=== PATIENT | female | born 1995 | race African-American/Black ===

== ENCOUNTER 2017-06-01 20:01 | Inpatient (IN) ==
[2017-06-01] MEDS ORDERED: ONDANSETRON 4 MG/2 ML VIAL IV PRN (20:32)
[2017-06-01 21:05] LABS: Basophils % 0.1 % (0.0-0.8); Eosinophils % 0.6 % (0.00-10.9); Hematocrit 32.4 VOL% (35.7-47.0); Hemoglobin 11.4 GM/DL (12.0-16.0); Immature Granulocytes % 0.4 %; Immature Granulocytes Absolute 0.03 #; Lymphocytes # 1.9 10*3/uL (1.4-4.0); Lymphocytes % 27.3 % (21.3-54.2); Mean Corpuscular HGB Conc 35.2 GM/DL (32-36); Mean Corpuscular Hemoglobin 32 PG (27-34); Mean Corpuscular Volume 91.3 FL (87-102); Monocytes # 0.6 10*3/uL (0.11-0.8); Neutrophils # 4.4 10*3/uL (1.4-7.4); Neutrophils % 63.6 % (38.7-73.9); Platelet Count 149 T/CUMM (130-400); Red Blood Count 3.55 MC/CUMM (3.8-5.5); Red Cell Distribution Width 13.3 % (9.3-17.3); White Blood Count 6.9 T/CUMM (4-12)
[2017-06-01] MEDS: LACTATED RINGERS 1,000 ML IV SCH (21:30)
[2017-06-01 21:35] LABS: PT Patient Result 10.1 SECS; Partial Thromboplastin Time 29.6 SECS (0-40)
[2017-06-01 21:41] LABS: Alanine Aminotransferase 16 U/L (13-56); Albumin 2.8 G/DL (3.4-5.0); Alkaline Phosphatase 172 U/L (45-117); Aspartate Amino Transferase 16 U/L (0-37); Bilirubin,Total < 0.39 MG/DL (0.2-1.0); Blood Urea Nitrogen 8 MG/DL (7-18); Calcium 8.4 MG/DL (8.5-10.1); Glucose 82 MG/DL (74-106); Osmolality,Calculated 279.1 MOS/KG (273-304); Potassium 3.6 MMOL/L (3.5-5.1); Sodium 142 MMOL/L (136-145); Total Protein 6.6 G/DL (6.4-8.3); Uric Acid 4.8 MG/DL (2.6-6.0)
[2017-06-02] MEDS: BUTORPHANOL 1 MG/ML VIAL IV PRN ×2 (01:37→07:25)
[2017-06-02] MEDS: LACTATED RINGERS 1,000 ML IV SCH ×3 (01:37→21:54)
[2017-06-02] MEDS ORDERED: FAMOTIDINE 20 MG/2 ML VIAL IV ONE ×2 (05:22→07:30)
[2017-06-02] MEDS ORDERED: LACTATED RINGERS 250 ML IV PRN (05:22)
[2017-06-02] MEDS ORDERED: ePHEDrine 50 MG/ML AMP IV PRN (05:22)
[2017-06-02] MEDS ORDERED: CITRIC ACID/SODIUM CITRATE 30 ML UDCUP PO ONE (05:22)
[2017-06-02] MEDS ORDERED: PROMETHAZINE 25 MG/1 ML VIAL IM ONE (05:22)
[2017-06-02] MEDS ORDERED: hydrOXYzine HCL 25 MG/1 ML VIAL IM PRN (05:22)
[2017-06-02] MEDS ORDERED: diphenhydrAMINE 50 MG/1 ML VIAL IV PRN ×2 (05:22)
[2017-06-02] MEDS ORDERED: fentaNYL 2 MCG/ROPIV 0.2% EPID 150 ML EPIDURAL SCH (05:22)
[2017-06-02] MEDS ORDERED: LACTATED RINGERS 1,000 ML IV SCH (05:30)
--- NOTE | 2017-06-02 05:56 | OB/GYN History & Physical ---
History of Present Illness Chief complaint: at 39 weeks PIH admitted for Cytotec induction History of present illness: Ms. Soto is a 21 year old female 1 para 0 at 39 weeks with elevated blood pressures, was seen last week with elevated blood pressures but they did normalize left lateral decubitus. There now staying elevated. Ultrasound performed which showed estimated weight 7 lbs. 4 oz. vertex presentation with JOSELINE of 11.4. She has adequate clinical pelvimetry. Options were discussed with patient and she is consequently scheduled for Cytotec induction. 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 - Constitutional General appearance: normal weight, no acute distress - Head Head exam: Present: normal inspection, normocephalic, atraumatic - Neck Neck exam: Present: normal inspection - Respiratory Respiratory exam: Present: clear to auscultation bilaterally - Breast Breasts: as per HPI Menstruation: as per HPI - Cardiovascular Cardiovascular exam: Present: regular rate and rhythm - GI/Abdominal GI/Abdominal exam: Present: normal bowel sounds - Extremities Exam Extremities exam: Present: normal inspection, normal capillary refill - Back Exam Back exam: Present: normal inspection - Psychiatric Psychiatric exam: Present: normal affect - Skin Skin exam: Present: normal color, warm Assessment and Plan (1) with 39 completed weeks gestation Status: Acute Current Visit: Yes (2) PIH ( induced hypertension) Status: Acute Current Visit: Yes (3) Elective induction of labor planned Status: Acute Current Visit: Yes Results - Labs CBC & BMP: 06/01/17 20:47 06/01/17 20:47
[2017-06-02] MEDS ORDERED: ONDANSETRON 4 MG/2 ML VIAL ONE (07:55)
[2017-06-02] MEDS ORDERED: OXYTOCIN/LR 20 UNIT/1,000 ML BAG IV ONE ×2 (10:13→11:08)
[2017-06-02] MEDS ORDERED: ONDANSETRON 4 MG/2 ML VIAL IV PRN (11:08)
[2017-06-02] MEDS ORDERED: ACETAMINOPHEN 325 MG TABLET PO PRN (11:08)
[2017-06-02] MEDS ORDERED: BISACODYL 10 MG SUPP RECTAL PRN (11:08)
[2017-06-02] MEDS ORDERED: MEASLES/MUMPS/RUBELLA VACCINE 0.5 ML VIAL SUBCUT ONE (11:08)
[2017-06-02] MEDS ORDERED: oxyCODONE/ACETAMINOPHEN 5-325 MG TABLET PO PRN (11:08)
[2017-06-02] MEDS ORDERED: LANOLIN 50% CREAM 0.3 OZ TUBE TOP PRN (11:08)
[2017-06-02] MEDS ORDERED: DIPH/TET/ACEL PERT BOOSTER VACCINE 0.5 ML VIAL IM ONE (11:08)
[2017-06-02] MEDS ORDERED: BENZOCAINE 20%/MENTHOL 0.5% SPRAY 56 GM CAN TOP PRN (11:08)
[2017-06-02] MEDS ORDERED: RHO(D) IMMUNE GLOBULIN 300 MCG SYRINGE IM ONE (11:08)
[2017-06-02] MEDS ORDERED: WITCH HAZEL PADS 100/JAR TOP PRN (11:08)
[2017-06-02] MEDS ORDERED: HYDROCORTISONE 2.5% RECTAL CREAM 30 GM TUBE TOP PRN (11:08)
[2017-06-02] MEDS ORDERED: TISSUE ADHESIVE 1 EACH APPLICATOR TOP ONE (11:08)
--- NOTE | 2017-06-02 11:08 | Operative Note ---
Date of procedure: 06/02/17 Pre-op diagnosis: 39 weeks PIH failed Cytotec persistent stress Post-op diagnosis: same Procedure: This is Dr. Miller dictating operative note: Preoperative diagnosis intrauterine intrauterine at [39] weeks 2. PIH 3. Failed Cytotec induction 4. Persistent stress remote from delivery Postoperative diagnosis same Procedure primary low transverse section Surgeon Dr. Miller Anesthesia epidural Findings liveborn [male] infant 6 pounds 2 ounces Apgars 9 and 9 Complications none Estimated blood loss [400] mL Disposition patient to recovery room in [stable] condition. Infant to nursery in [stable] condition Operative description: After the risks benefits and alternatives were explained to the patient in detail and informed consent was obtained, the patient was taken to the operating room where she was placed in the supine position. After achieving appropriate anesthesia the abdomen was prepped and draped in the usual sterile fashion. A Orellana catheter was placed without difficulty. After the appropriate time out and after adequate anesthesia was ascertained a Pfannenstiel skin incision was made and carried down through the subcutaneous tissue down to the fascia. The fascia was nicked in the midportion and undermined and incised both laterally and cephalad using sharp dissection with the curved Joseph scissors. 2 Helena clamps were used to elevate the rectus fascia superiorly which was bluntly and sharply dissected away from the rectus muscle below. This was repeated inferiorly. The rectus muscles were then bluntly in the midline the peritoneum identified grasped with 2 curved hemostats and entered sharply using the curved Metzenbaum scissors. A bladder blade was then placed in the pelvis and a bladder flap was created off the lower uterine segment using sharp dissection with the Metzenbaum scissors. The bladder blade was then repositioned. A transverse incision was made across the lower uterine segment down to the amnion. Entry into the amnion revealed [ clear] amniotic fluid. The uterine incision was then extended laterally using bilateral finger fractionation. Upon palpation the presenting part was [vertex ] which was gently elevated out of the pelvis and delivered onto the abdominal wall using appropriate fundal pressure. The 's nose and oropharynx were bulb and DeLee suctioned and the infant had spontaneous cry delivery. The cord was doubly clamped and cut and the was handed over to the team for care. Cord blood was obtained. The placenta was delivered manually and IV Pitocin antibiotics and Zofran were begun. The uterus was then exteriorized and placed in a wet laparotomy sponge. 2 fingers wrapped around a wet laparotomy sponge were used to remove all residual membranes from the uterine cavity. The uterus was then closed in 2 layers. The first layer of myometrium was closed with #1 Monocryl suture in an inner locking fashion beginning at both angles and overlapping slightly in the midline. The second layer of myometrium was closed with #1 Monocryl suture in a running imbricating stitch beginning at the right angle and continuing the length of the uterine incision. Hemostasis was noted to be excellent. The posterior cul-de-sac was then irrigated and cleansed with a wet laparotomy sponge and the uterus was placed back in the abdominal cavity. Both pericolic gutters were then irrigated and cleansed with a wet lap sponge. The uterine incision was then re-irrigated and again noted to be hemostatic. All counts were noted to be correct. The subcutaneous tissue was then closed using 3-0 Vicryl suture in a running fashion. The subfascial area was made hemostatic using electrocautery and closed with #1 PDS suture in a running fashion beginning at both angles and overlapping slightly in the midline. The subcutaneous tissue was irrigated and made hemostatic using electrocautery and closed with 2-0 Vicryl suture in a running fashion and the skin was closed with wide skin ashley and a sterile pressure bandage was applied to the wound. All sponge needle and instrument counts were correct -3 at the end of the procedure. The patient's urine was [ clear] both at the beginning in the end of the procedure. The patient was taken to the recovery room in stable condition Anesthesia: epidural Surgeon / Physician: Terrell Miller Estimated blood loss: other (400) Specimens: none sent Condition: stable Disposition: floor Results - Labs CBC & BMP: 06/01/17 20:47 06/01/17 20:47
[2017-06-02 11:39] LABS: Cord Arterial Blood HCO3 23.4 MMOL/L
[2017-06-02] MEDS ORDERED: KETAMINE 500 MG/10 ML VIAL ONE (11:39)
[2017-06-02] MEDS ORDERED: MIDAZOLAM 2 MG/2 ML VIAL ONE (11:39)
[2017-06-02 11:43] LABS: Cord Venous Blood HCO3 22.4 MMOL/L; Cord Venous Blood PCO2 59.3 MMHG; Cord Venous Blood PO2 12.7 MMHG
--- NOTE | 2017-06-02 11:45 | Anesthesia Post-Op ---
Anesthesia Post OP - Post Ansesthetic Evaluation Patient seen in post op: Yes Resp: within normal limits CV: within normal limits Mental: within normal limits Temp: within normal limits [id number]: within normal limits Nausea and Vomiting: within normal limits Pain: within normal limits
[2017-06-02] MEDS ORDERED: HYDROmorphone 2 MG/1 ML VIAL IV ONE (13:23)
[2017-06-02] MEDS ORDERED: NALOXONE 0.4 MG/ML VIAL IV PRN (14:02)
[2017-06-02] MEDS ORDERED: HYDROmorphone PCA 30 MG/30 ML SYRINGE IV SCH (14:30)
[2017-06-02] MEDS ORDERED: MORPHINE 2 MG/1 ML SYRINGE IV PRN (16:00)
[2017-06-02] MEDS ORDERED: LABETALOL 100 MG TABLET ONE (16:35)
[2017-06-02] MEDS: LABETALOL 100 MG TABLET PO SCH (16:39)
[2017-06-02] MEDS ORDERED: hydrALAZINE 20 MG/1 ML VIAL IV PRN (18:05)
[2017-06-03] MEDS: LACTATED RINGERS 1,000 ML IV SCH (06:20)
[2017-06-03] MEDS: LABETALOL 100 MG TABLET PO SCH ×3 (06:21→20:51)
[2017-06-03] MEDS: DOCUSATE SODIUM 100 MG CAPSULE PO SCH ×3 (06:21→20:51)
--- NOTE | 2017-06-03 06:27 | OB/GYN Progress Note ---
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 She is tolerating her diet. She is alert and oriented -3 Cardiovascular regular rate and rhythm Lungs clear to auscultation Abdomen soft with appropriate tenderness and bowel sounds are present and her incision is dry no bleeding Is good refill HEENT shows pink conjunctiva assessment 1 day of surgery doing well Plan continue present management with expected DC in a.m. Exam BUSINESS RELATIONS MANAGER - Constitutional Vitals: Vital Signs Temp Pulse Pulse Resp BP BP Pulse Ox 06/03/17 04:00 98.1 F 98 H 98 H 18 137/77 137/77 97 06/02/17 23:52 98.6 F 88 88 18 123/73 123/73 98 06/02/17 20:45 97 H 18 129/75 98 06/02/17 20:00 99.0 F 105 H 20 145/85 06/02/17 19:45 105 H 20 145/85 98 06/02/17 18:45 146/80 06/02/17 18:22 153/86 06/02/17 18:18 140/95 06/02/17 18:16 153/104 06/02/17 18:15 152/106 06/02/17 18:00 163/106 06/02/17 17:15 75 18 155/102 06/02/17 16:15 98.8 F 89 18 152/102 06/02/17 15:15 87 18 149/105 06/02/17 14:45 85 18 158/102 06/02/17 14:15 99 F 95 H 18 154/94 06/02/17 12:00 97.2 F L 80 18 147/77 06/02/17 08:00 81 18 148/85 Pulse Ox 06/03/17 04:00 97 06/02/17 23:52 98 06/02/17 20:45 06/02/17 20:00 98 06/02/17 19:45 06/02/17 18:45 06/02/17 18:22 06/02/17 18:18 06/02/17 18:16 06/02/17 18:15 06/02/17 18:00 06/02/17 17:15 99 06/02/17 16:15 99 06/02/17 15:15 99 06/02/17 14:45 99 06/02/17 14:15 99 06/02/17 12:00 99 06/02/17 08:00 99 Results - Labs CBC & BMP: 06/01/17 20:47 06/01/17 20:47
[2017-06-03 06:30] LABS: Basophils % 0.2 % (0.0-0.8); Hematocrit 29.5 VOL% (35.7-47.0); Hemoglobin 10.2 GM/DL (12.0-16.0); Immature Granulocytes % 0.6 %; Immature Granulocytes Absolute 0.07 #; Lymphocytes # 1.6 10*3/uL (1.4-4.0); Lymphocytes % 13.8 % (21.3-54.2); Mean Corpuscular HGB Conc 34.6 GM/DL (32-36); Mean Corpuscular Hemoglobin 32 PG (27-34); Mean Corpuscular Volume 92.8 FL (87-102); Mean Platelet Volume 14.4 FL (9.6-12.0); Monocytes # 0.9 10*3/uL (0.11-0.8); Monocytes % 7.7 % (1.7-12.7); Neutrophils # 8.8 10*3/uL (1.4-7.4); Neutrophils % 77.7 % (38.7-73.9); Platelet Count 112 T/CUMM (130-400); Red Blood Count 3.18 MC/CUMM (3.8-5.5); Red Cell Distribution Width 13.6 % (9.3-17.3); White Blood Count 11.3 T/CUMM (4-12)
[2017-06-03] MEDS: IBUPROFEN 800 MG TABLET PO PRN ×3 (08:29→23:40)
[2017-06-03] MEDS: oxyCODONE/ACETAMINOPHEN 5-325 MG TABLET PO PRN ×3 (08:30→23:40)
[2017-06-03] MEDS ORDERED: RHO(D) IMMUNE GLOBULIN 300 MCG SYRINGE IM ONE (15:00)
[2017-06-03] MEDS: MAGNESIUM HYDROXIDE SUSP 30 ML UDCUP PO PRN (20:51)
[2017-06-04 07:18] VITALS: BP 128/75
--- NOTE | 2017-06-04 08:32 | Discharge Summary ---
Hospital Course - Hospital Course Hospital Course: Postoperatively the patient did well. She had quick return of bowel bladder function. She remained afebrile and normotensive throughout her hospitalization. She is counseled discharged on postoperative day #2 on a regular diet Diagnosis - Discharge Diagnosis (1) with 39 completed weeks gestation Status: Acute (2) PIH ( induced hypertension) Status: Acute (3) Elective induction of labor planned Status: Acute Discharge Plan - Discharge Data Disposition: Disch To Home/Self Care Condition at Discharge: Stable Discharge Diet: regular diet Activity: increase activity as tolerated, no lifting, other (Pelvic rest) Hygiene: may shower Weight Bearing at Discharge: full weight bearing Driving: not until seen by doctor Contact your physician if you experience:: fever over 101, Difficulty voiding, Redness or swelling, Nausea/Vomiting, Shortness of breath, Bleeding, pain uncontrolled by pain medications - Discharge Medications New Labetalol Tab [Trandate Tab] 100 mg PO BID #60 tablet oxyCODONE/ACETAMINOPHEN 5-325 [Percocet 5-325] 1 tablet PO Q6H PRN #20 tablet PRN Reason: Pain Severe (8-10) - Follow Up or Referral Follow Up: Terrell Miller MD [Physician] - 1 Week - Forms/Instructions Exam - Constitutional Vitals: Period Temp Pulse Resp BP Sys/Rinaldi Pulse Ox Last 24 Hr 97.6 F-98.5 F 91-109 18-20 122-152/64-93 98-98 Discharge Results Labs on day of discharge: Labs from last 24 hours 06/03/17 05:50 Antibody Identification Anti-D DS: Provider Date of admission: 06/01/17 20:01 Primary care physician: . No PCP Attending physician on admission: Mitchell Padgett Consults: 06/01/17 20:32 Consult to Anesthesiology [CONS] Routine Consulting Provider: Reason for Anesthesiology: Epidural Consult Comment: Epidural for pain managment 06/02/17 11:08 Consult to Pilot Control Operator [CONS] Routine Consult Pilot Control Operator: Breast Feeding Discharging clinician: Mitchell Padgett Expected date of discharge: 06/04/17
[2017-06-04] MEDS: LABETALOL 100 MG TABLET PO SCH (08:36)
[2017-06-04] MEDS: DOCUSATE SODIUM 100 MG CAPSULE PO SCH (08:36)
[2017-06-04] MEDS: MAGNESIUM HYDROXIDE SUSP 30 ML UDCUP PO PRN (09:41)
== END 2017-06-04 14:05 | disposition home or self-care (01) | DRG 540 ==
LOC: N.LD 20:01 → N.OB 06-02 14:23
PROVIDERS: ADMIT Specialist; ATTEND Specialist
PROC: LDCSECT (ICD-10-PCS; 2017-06-02 10:30)

== ENCOUNTER 2018-07-13 05:33 | Inpatient (IN) ==
[2018-07-13] MEDS ORDERED: ceFAZolin 2,000 MG in PREMIX 1 EACH IV ONE (05:53)
[2018-07-13] MEDS ORDERED: CITRIC ACID/SODIUM CITRATE 30 ML UDCUP PO ONE (05:53)
[2018-07-13] MEDS ORDERED: FAMOTIDINE 20 MG/2 ML VIAL IV ONE (05:53)
[2018-07-13] MEDS ORDERED: OXYTOCIN/LR 20 UNIT/1,000 ML BAG IV ONE ×2 (05:55→10:11)
[2018-07-13] MEDS: LACTATED RINGERS 1,000 ML IV SCH ×2 (06:15→21:00)
[2018-07-13 06:19] LABS: Basophils % 0.2 % (0.0-0.8); Eosinophils % 0.2 % (0.00-10.9); Hematocrit 31.8 VOL% (35.7-47.0); Hemoglobin 10.7 GM/DL (12.0-16.0); Immature Granulocytes % 0.4 %; Immature Granulocytes Absolute 0.02 #; Lymphocytes % 42.5 % (21.3-54.2); Mean Corpuscular HGB Conc 33.6 GM/DL (32-36); Mean Corpuscular Hemoglobin 31 PG (27-34); Mean Corpuscular Volume 91.1 FL (87-102); Mean Platelet Volume 14.2 FL (9.6-12.0); Monocytes # 0.4 10*3/uL (0.11-0.8); Monocytes % 8.5 % (1.7-12.7); Neutrophils # 2.2 10*3/uL (1.4-7.4); Neutrophils % 48.2 % (38.7-73.9); Platelet Count 134 T/CUMM (130-400); Red Blood Count 3.49 MC/CUMM (3.8-5.5); Red Cell Distribution Width 13.3 % (9.3-17.3); White Blood Count 4.6 T/CUMM (4-12)
[2018-07-13 06:46] LABS: Albumin 2.9 G/DL (3.4-5.0); Bilirubin,Total 0.4 MG/DL (0.2-1.0); Calcium 8.5 MG/DL (8.5-10.1); Total Protein 7.4 G/DL (6.4-8.3)
[2018-07-13 06:47] LABS: Osmolality,Calculated 272.5 MOS/KG (273-304); Potassium 3.4 MMOL/L (3.5-5.1)
[2018-07-13] MEDS ORDERED: LACTATED RINGERS 1,000 ML IV ONE (08:00)
[2018-07-13] MEDS ORDERED: BUPIVACAINE SPINAL 0.75% 2 ML AMP SPINAL ONE ×2 (09:21→10:23)
[2018-07-13] MEDS ORDERED: ACETAMINOPHEN 325 MG TABLET PO PRN (10:11)
[2018-07-13] MEDS ORDERED: WITCH HAZEL PADS 100/JAR TOP PRN (10:11)
[2018-07-13] MEDS ORDERED: oxyCODONE/ACETAMINOPHEN 5-325 MG TABLET PO PRN (10:11)
[2018-07-13] MEDS ORDERED: HYDROCORTISONE 2.5% RECTAL CREAM 30 GM TUBE TOP PRN (10:11)
[2018-07-13] MEDS ORDERED: LANOLIN 50% CREAM 0.3 OZ TUBE TOP PRN (10:11)
[2018-07-13] MEDS ORDERED: BENZOCAINE 20%/MENTHOL 0.5% SPRAY 56 GM CAN TOP PRN (10:11)
[2018-07-13] MEDS ORDERED: ONDANSETRON 4 MG/2 ML VIAL IV PRN (10:11)
[2018-07-13] MEDS ORDERED: BISACODYL 10 MG SUPP RECTAL PRN (10:11)
[2018-07-13 10:22] LABS: Apearance,Urine CLEAR (Clear); Bacteria,Urine Occasional /HPF (Few); Bilirubin,Urine Negative (Negative); Blood, Urine Negative (Negative); Glucose,Urine (UA) Negative (Negative); Ketones,Urine 20 mg/dL (Negative); Mucus,Urine Occasional /LPF (Occasional); Nitrite,Urine Negative (Negative); Protein,Urine Negative; RBC,Urine 1 /HPF (0-4); Urine Color Yellow (Yellow); Urine Specific Gravity 1.011 (1.001-1.035); Urine Urobilinogen < 2.0 EU/DL (0.2-1.0); WBC,Urine 1 /HPF (0-6)
[2018-07-13] MEDS ORDERED: MIDAZOLAM 2 MG/2 ML VIAL ONE (10:22)
[2018-07-13] MEDS ORDERED: MORPHINE 10 MG/10 ML VIAL ONE (10:23)
[2018-07-13] MEDS ORDERED: PHENYLEPHRINE 1 MG/10 ML SYRINGE IV ONE (10:25)
[2018-07-13] MEDS ORDERED: MEASLES/MUMPS/RUBELLA VACCINE 0.5 ML VIAL SUBCUT ONE (10:30)
[2018-07-13] MEDS ORDERED: DIPH/TET/ACEL PERT BOOSTER VACCINE 0.5 ML VIAL IM ONE (10:30)
[2018-07-13] MEDS ORDERED: RHO(D) IMMUNE GLOBULIN 300 MCG SYRINGE IM ONE (10:30)
[2018-07-13] MEDS ORDERED: MEPERIDINE 50 MG/1 ML VIAL ONE (11:35)
[2018-07-13] MEDS ORDERED: PROMETHAZINE 25 MG/1 ML VIAL IM ONE (11:35)
[2018-07-13] MEDS ORDERED: MEPERIDINE 50 MG/1 ML VIAL IM ONE (11:35)
[2018-07-13] MEDS ORDERED: PROMETHAZINE 25 MG/1 ML VIAL ONE (11:36)
[2018-07-13] MEDS: ceFAZolin 1,000 MG in SYRINGE 1 EACH IV SCH (17:40)
[2018-07-13] MEDS ORDERED: ceFAZolin 2,000 MG in PREMIX 1 EACH IV SCH (18:00)
[2018-07-13] MEDS ORDERED: diphenhydrAMINE CAP 25 MG CAPSULE PO PRN (21:24)
[2018-07-14] MEDS: ceFAZolin 1,000 MG in SYRINGE 1 EACH IV SCH ×2 (01:25→08:55)
[2018-07-14] MEDS: oxyCODONE/ACETAMINOPHEN 5-325 MG TABLET PO PRN ×3 (01:26→19:45)
[2018-07-14] MEDS: DOCUSATE SODIUM 100 MG CAPSULE PO SCH ×3 (04:12→20:15)
[2018-07-14] MEDS: LACTATED RINGERS 1,000 ML IV SCH (06:00)
[2018-07-14 07:07] LABS: Basophils % 0.3 % (0.0-0.8); Eosinophils % 0.3 % (0.00-10.9); Hematocrit 33.5 VOL% (35.7-47.0); Hemoglobin 11.4 GM/DL (12.0-16.0); Immature Granulocytes % 0.5 %; Immature Granulocytes Absolute 0.04 #; Lymphocytes # 1.7 10*3/uL (1.4-4.0); Lymphocytes % 22.6 % (21.3-54.2); Mean Corpuscular Hemoglobin 31 PG (27-34); Mean Corpuscular Volume 91.3 FL (87-102); Mean Platelet Volume 14.8 FL (9.6-12.0); Monocytes # 0.6 10*3/uL (0.11-0.8); Monocytes % 7.6 % (1.7-12.7); Neutrophils # 5.2 10*3/uL (1.4-7.4); Neutrophils % 68.7 % (38.7-73.9); Platelet Count 147 T/CUMM (130-400); Red Blood Count 3.67 MC/CUMM (3.8-5.5); Red Cell Distribution Width 13.2 % (9.3-17.3); White Blood Count 7.6 T/CUMM (4-12)
[2018-07-14 08:01] LABS: Platelet Estimate Normal
[2018-07-14 08:05] LABS: Polychromasia Slight
[2018-07-14 08:08] LABS: Spherocytes 2+
[2018-07-14] MEDS ORDERED: FLUCONAZOLE 150 MG TABLET PO ONE (08:46)
[2018-07-14] MEDS: IBUPROFEN 800 MG TABLET PO PRN (13:28)
[2018-07-14] MEDS ORDERED: RHO(D) IMMUNE GLOBULIN 300 MCG SYRINGE IM ONE (18:30)
[2018-07-14] MEDS ORDERED: MAGNESIUM HYDROXIDE SUSP 30 ML UDCUP PO PRN (19:29)
[2018-07-14] MEDS ORDERED: SIMETHICONE CHEW 80 MG TABLET PO PRN (19:30)
[2018-07-15] MEDS: oxyCODONE/ACETAMINOPHEN 5-325 MG TABLET PO PRN ×2 (03:20→10:04)
[2018-07-15 09:08] VITALS: BP 119/70
[2018-07-15] MEDS: DOCUSATE SODIUM 100 MG CAPSULE PO SCH (10:04)
[2018-07-15] MEDS: IBUPROFEN 800 MG TABLET PO PRN (13:26)
== END 2018-07-15 15:30 | disposition home or self-care (01) | DRG 765 ==
LOC: N.LDOUT 05:33 → N.LD 05:48 → N.OB 13:21
PROVIDERS: ADMIT Specialist; ATTEND Specialist
PROC: LDCSECT (ICD-10-PCS; 2018-07-13 09:00)